=== PATIENT | male | born 1940 | race Two or more races ===

== ENCOUNTER 2019-10-29 17:42 | Inpatient (IN) | payer OTHER ==
[~2019-10-29] VITALS: Ht 172.7 cm; Wt 78.0 kg
[2019-10-29] MEDS ORDERED: NOREPINEPHRINE 4MG/250ML PMX 250 ML IV ONE (18:00)
[2019-10-29] MEDS ORDERED: NOREPINEPHRINE 4MG/250ML PMX 250 ML IV STA (18:13)
[2019-10-29] MEDS ORDERED: SODIUM CHLORIDE 0.9% 250 ML IV ONE (18:13)
[2019-10-29] MEDS ORDERED: PROPOFOL 10MG/ML 100ML 100 ML IV ONE (18:15)
[2019-10-29] MEDS ORDERED: PIPERACILLIN/TAZ 3.375G PREMIX 50 ML IV ONE (18:15)
[2019-10-29] MEDS ORDERED: ACETAMINOPHEN 650MG SUPP PR ONE (18:30)
[2019-10-29 19:06] LABS: BASOPHILS % 0.4 % (0.0-2.0); EOSINOPHILS % 0.1 % (0.0-5.0); HEMATOCRIT. 33.9 % (42.0-52.0); HEMOGLOBIN. 10.7 g/dL (14.0-18.0); LYMPHOCYTES % 27.7 % (20.0-50.0); MEAN CORPUSCULAR HEMOGLOBIN 28.2 pg (28.0-32.0); MEAN CORPUSCULAR VOLUME 88.9 fL (80.0-94.0); MEAN PLATELET VOLUME 8.9 fl (7.4-10.4); MONOCYTES % 3.7 % (2.0-8.0); NEUTROPHILS % 68.1 % (40.0-76.0); PLATELET 343 x1000/uL (130-400); RED BLOOD CELL COUNT 3.81 mill/uL (4.7-6.1); RED CELL DISTRIBUTION WIDTH 18.6 % (11.6-14.6)
[2019-10-29 19:10] LABS: CHLORIDE 107 mEq/L (98-107)
[2019-10-29 19:17] LABS: INR 1.5; PROTHROMBIN TIME 16.5 sec (9.6-11.0)
[2019-10-29] MEDS ORDERED: MIDAZOLAM HCL 50 MG in DEXTROSE 5% WATER 40 ML IV ONE (19:30)
[2019-10-29] MEDS ORDERED: EPINEPHRINE 1 MG in SODIUM CHLORIDE 0.9% 250 ML IV STA (20:39)
[2019-10-29] MEDS ORDERED: EPINEPHRINE 1 MG in SODIUM CHLORIDE 0.9% 249 ML IV STA (20:42)
[2019-10-29] MEDS ORDERED: NOREPINEPHRINE 4MG/250ML PMX 250 ML IV SCH (23:15)
[2019-10-29 23:38] LABS: BG BASE EXCESS -7.5 mmol/L (-2.0-2.0); BG CARBOXYHEMOGLOBIN 0.3 % (0.5-1.5); BG DEOXYHEMOGLOBIN 0.4 % (0.0-5.0); BG FRACTION INSPIRED OXYGEN 100; BG HCO3 ACT 18.8 mmol/L (22.0-26.0); BG METHEMOGLOBIN 0.3 % (0.0-1.5); BG OXYGEN SATURATION 99.6 % (92.0-98.5); BG PH 7.279 (7.350-7.450); BG PO2 346.5 mmHg (75.0-100.0); BG SAMPLE SITE RIGHT RADIAL; BG TIDAL VOLUME(mL) 500 mL; BG TOTAL HEMOGLOBIN 10.8 g/dL (12.0-18.0); BG VENT MODE VENT - A/C; BG VENT RATE 12 set
[2019-10-30] MEDS ORDERED: EPINEPHRINE 1 MG in SODIUM CHLORIDE 0.9% 249 ML IV SCH (00:30)
[2019-10-30] MEDS ORDERED: MIDAZOLAM HCL 50 MG in DEXTROSE 5% WATER 40 ML IV SCH (02:00)
[2019-10-30] MEDS ORDERED: VANCOMYCIN 1 G PREMIX 200 ML IV SCH ×2 (08:45→23:00)
[2019-10-30] MEDS: DEXT 5%/0.9% NACL 1,000 ML IV SCH (10:10)
[2019-10-30] MEDS: PANTOPRAZOLE SODIUM 40 MG/VIAL IV SCH (10:40)
[2019-10-30] MEDS ORDERED: VANCOMYCIN 1250MG in DEXTROSE 5% WATER 250ML IV SCH (11:00)
[2019-10-30] MEDS: PIPERACILLIN/TAZOBACTAM 3.375 G in DEXT 5% WATER 100 ML IV SCH ×2 (12:00→19:00)
[2019-10-30 12:35] LABS: BG BASE EXCESS -11.9 mmol/L (-2.0-2.0); BG CARBOXYHEMOGLOBIN 0.3 % (0.5-1.5); BG DEOXYHEMOGLOBIN 0.5 % (0.0-5.0); BG FRACTION INSPIRED OXYGEN 80; BG METHEMOGLOBIN 0.4 % (0.0-1.5); BG OXYGEN SATURATION 99.5 % (92.0-98.5); BG OXYHEMOGLOBIN 98.8 % (94.0-97.0); BG PCO2 38.2 mmHg (35.0-45.0); BG PH 7.213 (7.350-7.450); BG PO2 335.9 mmHg (75.0-100.0); BG SAMPLE SITE RIGHT RADIAL; BG TIDAL VOLUME(mL) 500 mL; BG TOTAL HEMOGLOBIN 8.8 g/dL (12.0-18.0); BG VENT MODE VENT - A/C; BG VENT RATE 12 set
[2019-10-30] MEDS: ENOXAPARIN 40MG/0.4ML SYR SUBCUT SCH (13:31)
[2019-10-30] MEDS ORDERED: SODIUM BICARBONATE 8.4% 1 MEQ/ML 50ML SYR IV NR ×2 (16:30)
[2019-10-30] MEDS ORDERED: DEXTROSE 50% WATER 50ML SYRINGE IV PRN (16:30)
[2019-10-30] MEDS: BLOOD SUGAR DIAGNOSTIC STRIP TEST SCH ×2 (17:06→21:00)
[2019-10-30] MEDS: INSULIN LISPRO 100 UNITS/ML SUBCUT SCH ×2 (17:35→23:58)
[2019-10-30 17:41] LABS: BG BASE EXCESS -8.3 mmol/L (-2.0-2.0); BG CARBOXYHEMOGLOBIN 0.3 % (0.5-1.5); BG DEOXYHEMOGLOBIN 1.3 % (0.0-5.0); BG FRACTION INSPIRED OXYGEN 50; BG HCO3 ACT 18.5 mmol/L (22.0-26.0); BG METHEMOGLOBIN 0.3 % (0.0-1.5); BG OXYGEN SATURATION 98.7 % (92.0-98.5); BG OXYHEMOGLOBIN 98.1 % (94.0-97.0); BG PCO2 43.6 mmHg (35.0-45.0); BG PH 7.246 (7.350-7.450); BG PO2 140.3 mmHg (75.0-100.0); BG SAMPLE SITE RIGHT RADIAL; BG TIDAL VOLUME(mL) 500 mL; BG TOTAL HEMOGLOBIN 9.3 g/dL (12.0-18.0); BG VENT MODE VENT - A/C; BG VENT RATE 12 set
[2019-10-30] MEDS ORDERED: NOREPINEPHRINE 4MG/250ML PMX 250 ML IV ONE (22:49)
[2019-10-30] MEDS ORDERED: NOREPINEPHRINE 4MG/250ML PMX 250 ML IV PRN (23:00)
[2019-10-31] MEDS: EPINEPHRINE 1 MG in SODIUM CHLORIDE 0.9% 250 ML IV PRN ×8 (00:04→23:00)
[2019-10-31 00:20] LABS: CREATINE KINASE 194 IU/L (39-308)
[2019-10-31 00:21] LABS: CREATINE KINASE MB FRACTION 6.1 ng/mL (0.5-3.6)
[2019-10-31] MEDS: DEXT 5%/0.9% NACL 1,000 ML IV SCH (01:00)
[2019-10-31] MEDS ORDERED: DIGOXIN 500MCG/2ML AMP IV SCH (02:00)
[2019-10-31] MEDS: INSULIN LISPRO 100 UNITS/ML SUBCUT SCH ×2 (03:46→21:49)
[2019-10-31] MEDS: PIPERACILLIN/TAZOBACTAM 3.375 G in DEXT 5% WATER 100 ML IV SCH ×3 (03:47→20:01)
[2019-10-31 04:51] LABS: HEMATOCRIT 29.2 % (42.0-52.0); HEMOGLOBIN 9.5 g/dL (14.0-18.0); MEAN CORPUSCULAR VOLUME 88.9 fL (80.0-94.0); PLATELET 221 x1000/uL (130-400); RED BLOOD CELL COUNT 3.28 mill/uL (4.7-6.1); RED CELL DISTRIBUTION WIDTH 18.8 % (11.6-14.6)
[2019-10-31] MEDS: NOREPINEPHRINE 4 MG in DEXT 5% WATER 246 ML IV PRN ×6 (05:24→21:31)
[2019-10-31] MEDS ORDERED: POTASSIUM CHLORIDE INJ 40 MEQ in DEXT 5% WATER 250 ML IV SCH (06:00)
[2019-10-31 08:30] LABS: BASOPHILS % 0.4 % (0.0-2.0); EOSINOPHILS % 0.7 % (0.0-5.0); HEMATOCRIT. 31.9 % (42.0-52.0); HEMOGLOBIN. 10.1 g/dL (14.0-18.0); LYMPHOCYTES % 12.9 % (20.0-50.0); MEAN CORPUSCULAR HEMOGLOBIN 28.1 pg (28.0-32.0); MEAN CORPUSCULAR VOLUME 89.1 fL (80.0-94.0); MEAN PLATELET VOLUME 8.4 fl (7.4-10.4); MONOCYTES % 1.7 % (2.0-8.0); NEUTROPHILS % 84.3 % (40.0-76.0); PLATELET 165 x1000/uL (130-400); RED BLOOD CELL COUNT 3.58 mill/uL (4.7-6.1); RED CELL DISTRIBUTION WIDTH 18.3 % (11.6-14.6)
[2019-10-31] MEDS: PANTOPRAZOLE SODIUM 40 MG/VIAL IV SCH (09:03)
[2019-10-31 09:12] LABS: BG BASE EXCESS -12.5 mmol/L (-2.0-2.0); BG CARBOXYHEMOGLOBIN 0.3 % (0.5-1.5); BG DEOXYHEMOGLOBIN 1.2 % (0.0-5.0); BG FRACTION INSPIRED OXYGEN 40; BG METHEMOGLOBIN 0.3 % (0.0-1.5); BG OXYGEN SATURATION 98.8 % (92.0-98.5); BG OXYHEMOGLOBIN 98.2 % (94.0-97.0); BG PCO2 28.4 mmHg (35.0-45.0); BG PH 7.278 (7.350-7.450); BG PO2 149.5 mmHg (75.0-100.0); BG SAMPLE SITE RIGHT FEMORAL; BG TIDAL VOLUME(mL) 500 mL; BG TOTAL HEMOGLOBIN 8.7 g/dL (12.0-18.0); BG VENT MODE VENT - A/C; BG VENT RATE 26 set
[2019-10-31] MEDS: ENOXAPARIN 40MG/0.4ML SYR SUBCUT SCH (09:30)
[2019-10-31] MEDS: VANCOMYCIN 750 MG PREMIX 150 ML IV SCH (12:00)
[2019-10-31] MEDS ORDERED: SODIUM BICARBONATE 8.4% 1 MEQ/ML 50ML SYR IV SCH (13:00)
[2019-10-31] MEDS ORDERED: CALCIUM GLUCONATE 1,000 MG in DEXT 5% WATER 90 ML IV NR (13:15)
[2019-10-31] MEDS ORDERED: POTASSIUM CHLORIDE INJ 40 MEQ in DEXT 5% WATER 250 ML IV NR (13:30)
[2019-10-31] MEDS: SODIUM BICARBONATE 100 MEQ in DEXT 5%/0.9% NACL 1,000 ML IV SCH (15:00)
[2019-10-31] MEDS: BLOOD SUGAR DIAGNOSTIC STRIP TEST SCH (21:49)
[2019-11-01] VITALS (73 sets, daily range): BP systolic 89–143; BP diastolic 52–85
[2019-11-01] MEDS: VANCOMYCIN 750 MG PREMIX 150 ML IV SCH (01:13)
[2019-11-01] MEDS ORDERED: NOREPINEPHRINE 4MG/250ML PMX 250 ML IV PRN (02:00)
[2019-11-01] MEDS: SODIUM BICARBONATE 100 MEQ in DEXT 5%/0.9% NACL 1,000 ML IV SCH ×3 (02:04→23:38)
[2019-11-01] MEDS: EPINEPHRINE 1 MG in SODIUM CHLORIDE 0.9% 250 ML IV PRN ×4 (02:05→06:40)
[2019-11-01] MEDS: PIPERACILLIN/TAZOBACTAM 3.375 G in DEXT 5% WATER 100 ML IV SCH ×4 (04:53→23:22)
[2019-11-01] MEDS ORDERED: NOREPINEPHRINE 4MG in DEXT 5% WATER 250ML IV PRN (06:15)
[2019-11-01] MEDS: BLOOD SUGAR DIAGNOSTIC STRIP TEST SCH ×4 (06:48→20:26)
[2019-11-01] MEDS: INSULIN LISPRO 100 UNITS/ML SUBCUT SCH ×4 (06:51→20:30)
[2019-11-01] MEDS ORDERED: EPINEPHRINE 1 MG in SODIUM CHLORIDE 0.9% 249 ML IV PRN (07:42)
[2019-11-01] MEDS ORDERED: EPINEPHRINE 4 MG in SODIUM CHLORIDE 0.9% 246 ML IV PRN (08:00)
[2019-11-01 08:07] LABS: BG BASE EXCESS -7.8 mmol/L (-2.0-2.0); BG CARBOXYHEMOGLOBIN 0.3 % (0.5-1.5); BG FRACTION INSPIRED OXYGEN 40; BG METHEMOGLOBIN 0.3 % (0.0-1.5); BG OXYHEMOGLOBIN 98.4 % (94.0-97.0); BG PCO2 31.7 mmHg (35.0-45.0); BG PH 7.347 (7.350-7.450); BG PO2 164.5 mmHg (75.0-100.0); BG SAMPLE SITE RIGHT RADIAL; BG TIDAL VOLUME(mL) 500 mL; BG TOTAL HEMOGLOBIN 8.8 g/dL (12.0-18.0); BG VENT MODE VENT - A/C; BG VENT RATE 20 set
[2019-11-01] MEDS: PANTOPRAZOLE SODIUM 40 MG/VIAL IV SCH (08:28)
[2019-11-01] MEDS: ENOXAPARIN 40MG/0.4ML SYR SUBCUT SCH (09:00)
[2019-11-01] MEDS: NOREPINEPHRINE 16 MG in DEXT 5% WATER 234 ML IV PRN ×2 (09:00→22:41)
[2019-11-01 09:10] LABS: BASOPHILS % 0.5 % (0.0-2.0); EOSINOPHILS % 0.4 % (0.0-5.0); HEMATOCRIT. 25.8 % (42.0-52.0); HEMOGLOBIN. 8.6 g/dL (14.0-18.0); LYMPHOCYTES % 11.5 % (20.0-50.0); MEAN CORPUSCULAR HEMOGLOBIN 29.1 pg (28.0-32.0); MEAN CORPUSCULAR VOLUME 87.3 fL (80.0-94.0); MEAN PLATELET VOLUME 8.6 fl (7.4-10.4); MONOCYTES % 1.5 % (2.0-8.0); NEUTROPHILS % 86.1 % (40.0-76.0); PLATELET 183 x1000/uL (130-400); RED BLOOD CELL COUNT 2.96 mill/uL (4.7-6.1); RED CELL DISTRIBUTION WIDTH 18.4 % (11.6-14.6)
[2019-11-01 09:15] LABS: CHLORIDE 111 mEq/L (98-107)
[2019-11-01] MEDS ORDERED: POTASSIUM CHLORIDE INJ 40 MEQ in DEXT 5% WATER 250 ML IV SCH (12:00)
[2019-11-01 12:10] LABS: CLARITY URINE CLOUDY (CLEAR); COLOR URINE YELLOW (YELLOW); KETONES URINE NEGATIVE (NEGATIVE); LEUKOCYTE ESTERASE URINE 2+ (NEGATIVE); NITRITE URINE NEGATIVE (NEGATIVE); OCCULT BLOOD URINE TRACE (NEGATIVE); PH URINE 5.5 (4.5-8.0); PROTEIN URINE TRACE (NEGATIVE); SPECIFIC GRAVITY URINE 1.011 (1.005-1.030); UROBILINOGEN URINE 0.2 E.U./dL (0.2-1.0)
[2019-11-01] MEDS: LACTOBACILLUS GG CAPSULE PO SCH (15:00)
[2019-11-01] MEDS: VANCOMYCIN 1 G PREMIX 200 ML IV SCH (18:17)
[2019-11-02] VITALS (120 sets, daily range): BP systolic 83–153; BP diastolic 45–100
[2019-11-02] MEDS: PIPERACILLIN/TAZOBACTAM 3.375 G in DEXT 5% WATER 100 ML IV SCH ×4 (05:45→23:45)
[2019-11-02 05:49] LABS: BASOPHILS % 0.8 % (0.0-2.0); EOSINOPHILS % 1.3 % (0.0-5.0); HEMATOCRIT. 25.9 % (42.0-52.0); HEMOGLOBIN. 8.7 g/dL (14.0-18.0); LYMPHOCYTES % 16.6 % (20.0-50.0); MEAN CORPUSCULAR HEMOGLOBIN 29.5 pg (28.0-32.0); MEAN CORPUSCULAR VOLUME 87.7 fL (80.0-94.0); MEAN PLATELET VOLUME 8.5 fl (7.4-10.4); MONOCYTES % 1.6 % (2.0-8.0); NEUTROPHILS % 79.7 % (40.0-76.0); PLATELET 133 x1000/uL (130-400); RED BLOOD CELL COUNT 2.95 mill/uL (4.7-6.1); RED CELL DISTRIBUTION WIDTH 18.6 % (11.6-14.6)
[2019-11-02] MEDS: BLOOD SUGAR DIAGNOSTIC STRIP TEST SCH ×4 (06:00→20:04)
[2019-11-02] MEDS: INSULIN LISPRO 100 UNITS/ML SUBCUT SCH ×4 (06:00→20:47)
[2019-11-02 06:13] LABS: CHLORIDE 116 mEq/L (98-107)
[2019-11-02 06:19] LABS: PHOSPHORUS 1.4 mg/dL (2.5-4.9)
[2019-11-02] MEDS ORDERED: DILTIAZEM HCL 5MG/ML 5ML VIAL IV NR (07:45)
[2019-11-02] MEDS: PANTOPRAZOLE SODIUM 40 MG/VIAL IV SCH (07:53)
[2019-11-02] MEDS: LACTOBACILLUS GG CAPSULE PO SCH (07:53)
[2019-11-02 08:19] LABS: BG BASE EXCESS -5.3 mmol/L (-2.0-2.0); BG CARBOXYHEMOGLOBIN 0.2 % (0.5-1.5); BG DEOXYHEMOGLOBIN 1.7 % (0.0-5.0); BG FRACTION INSPIRED OXYGEN 40; BG HCO3 ACT 18.4 mmol/L (22.0-26.0); BG METHEMOGLOBIN 0.4 % (0.0-1.5); BG OXYGEN SATURATION 98.3 % (92.0-98.5); BG OXYHEMOGLOBIN 97.7 % (94.0-97.0); BG PCO2 29.4 mmHg (35.0-45.0); BG PH 7.414 (7.350-7.450); BG PO2 147.6 mmHg (75.0-100.0); BG SAMPLE SITE RIGHT RADIAL; BG TIDAL VOLUME(mL) 500 mL; BG TOTAL HEMOGLOBIN 9.4 g/dL (12.0-18.0); BG VENT MODE VENT - A/C; BG VENT RATE 20 set
[2019-11-02] MEDS ORDERED: MAGNESIUM 2 G PREMIX 50 ML IV NR (10:00)
[2019-11-02] MEDS ORDERED: KCL 20MEQ/100ML PREMIX 100 ML IV NR (10:00)
[2019-11-02] MEDS: SODIUM BICARBONATE 100 MEQ in DEXT 5%/0.9% NACL 1,000 ML IV SCH ×2 (11:22→22:17)
[2019-11-02] MEDS: VANCOMYCIN 1 G PREMIX 200 ML IV SCH (12:00)
[2019-11-02] MEDS: ASCORBIC ACID 500 MG TABLET PO SCH (12:46)
[2019-11-02] MEDS: ZINC SULFATE 220 MG ( 50 ) CAPSULE PO SCH (12:46)
[2019-11-02] MEDS: DILTIAZEM HCL 60MG TABLET PO SCH ×2 (14:00→20:49)
[2019-11-02] MEDS ORDERED: FUROSEMIDE 40MG/4ML VIAL IVP NR (18:00)
[2019-11-02] MEDS: ASPIRIN 81MG TABLET PO SCH (18:19)
[2019-11-02] MEDS ORDERED: SODIUM PHOS,M-BASIC-D-BASIC 30 MM in DEXT 5% WATER 500 ML IV SCH (20:00)
[2019-11-03] VITALS (97 sets, daily range): BP systolic 66–118; BP diastolic 24–63
[2019-11-03] MEDS: DILTIAZEM HCL 60MG TABLET PO SCH ×3 (05:11→21:44)
[2019-11-03] MEDS: VANCOMYCIN 1 G PREMIX 200 ML IV SCH ×2 (05:46→23:57)
[2019-11-03] MEDS: PIPERACILLIN/TAZOBACTAM 3.375 G in DEXT 5% WATER 100 ML IV SCH ×4 (05:46→23:23)
[2019-11-03] MEDS: INSULIN LISPRO 100 UNITS/ML SUBCUT SCH ×4 (05:47→20:24)
[2019-11-03] MEDS: BLOOD SUGAR DIAGNOSTIC STRIP TEST SCH ×4 (05:47→20:24)
[2019-11-03 05:53] LABS: CHLORIDE 112 mEq/L (98-107)
[2019-11-03 05:58] LABS: BASOPHILS % 0.3 % (0.0-2.0); EOSINOPHILS % 0.5 % (0.0-5.0); HEMATOCRIT. 25.5 % (42.0-52.0); HEMOGLOBIN. 8.5 g/dL (14.0-18.0); LYMPHOCYTES % 18.6 % (20.0-50.0); MEAN CORPUSCULAR HEMOGLOBIN 28.7 pg (28.0-32.0); MEAN CORPUSCULAR VOLUME 86.5 fL (80.0-94.0); MEAN PLATELET VOLUME 8.6 fl (7.4-10.4); MONOCYTES % 2.5 % (2.0-8.0); NEUTROPHILS % 78.1 % (40.0-76.0); PLATELET 150 x1000/uL (130-400); RED BLOOD CELL COUNT 2.95 mill/uL (4.7-6.1); RED CELL DISTRIBUTION WIDTH 18.8 % (11.6-14.6)
[2019-11-03 05:59] LABS: PHOSPHORUS 3.5 mg/dL (2.5-4.9)
[2019-11-03] MEDS ORDERED: MAGNESIUM 2 G PREMIX 50 ML IV ONE (07:00)
[2019-11-03] MEDS: PANTOPRAZOLE SODIUM 40 MG/VIAL IV SCH (08:18)
[2019-11-03] MEDS: ZINC SULFATE 220 MG ( 50 ) CAPSULE PO SCH (08:18)
[2019-11-03] MEDS: ASPIRIN 81MG TABLET PO SCH (08:18)
[2019-11-03] MEDS: LACTOBACILLUS GG CAPSULE PO SCH (08:18)
[2019-11-03] MEDS: ASCORBIC ACID 500 MG TABLET PO SCH (08:18)
[2019-11-03] MEDS ORDERED: POTASSIUM CHLORIDE INJ 50 MEQ in DEXT 5% WATER 250 ML IV NR (08:30)
[2019-11-03 09:10] LABS: BG BASE EXCESS 0.3 mmol/L (-2.0-2.0); BG CARBOXYHEMOGLOBIN 0.3 % (0.5-1.5); BG DEOXYHEMOGLOBIN 1.3 % (0.0-5.0); BG FRACTION INSPIRED OXYGEN 40; BG HCO3 ACT 23.3 mmol/L (22.0-26.0); BG METHEMOGLOBIN 0.3 % (0.0-1.5); BG OXYGEN SATURATION 98.7 % (92.0-98.5); BG OXYHEMOGLOBIN 98.1 % (94.0-97.0); BG PH 7.493 (7.350-7.450); BG PO2 135.9 mmHg (75.0-100.0); BG SAMPLE SITE RIGHT RADIAL; BG TIDAL VOLUME(mL) 500 mL; BG TOTAL HEMOGLOBIN 9.2 g/dL (12.0-18.0); BG VENT MODE VENT - A/C; BG VENT RATE 20 set
[2019-11-03] MEDS: SODIUM BICARBONATE 100 MEQ in DEXT 5%/0.9% NACL 1,000 ML IV SCH (13:08)
[2019-11-03] MEDS ORDERED: DEXT IV SCH (16:07)
[2019-11-03] MEDS ORDERED: SODIUM BICARBONATE IV SCH (16:07)
[2019-11-03] MEDS ORDERED: NACL IV SCH (16:07)
[2019-11-03] MEDS: FLUCONAZOLE 200 MG/100ML BAG 100 ML IV SCH (19:46)
[2019-11-03] MEDS: SODIUM BICARBONATE 50 MEQ in DEXTROSE 5% WATER 1,000 ML IV SCH (21:47)
[2019-11-04] VITALS (41 sets, daily range): BP systolic 93–126; BP diastolic 39–69
[2019-11-04 05:01] LABS: HEMATOCRIT 30.2 % (42.0-52.0); HEMOGLOBIN 10.5 g/dL (14.0-18.0); MEAN CORPUSCULAR HEMOGLOBIN 31.8 pg (28.0-32.0); MEAN CORPUSCULAR VOLUME 91.6 fL (80.0-94.0); PLATELET 464 x1000/uL (130-400); RED CELL DISTRIBUTION WIDTH 13.3 % (11.6-14.6)
[2019-11-04 05:11] LABS: CHLORIDE 107 mEq/L (98-107)
[2019-11-04] MEDS: DILTIAZEM HCL 60MG TABLET PO SCH ×3 (05:27→21:47)
[2019-11-04] MEDS: BLOOD SUGAR DIAGNOSTIC STRIP TEST SCH ×4 (05:32→21:47)
[2019-11-04] MEDS: PIPERACILLIN/TAZOBACTAM 3.375 G in DEXT 5% WATER 100 ML IV SCH ×3 (05:32→16:15)
[2019-11-04] MEDS: INSULIN LISPRO 100 UNITS/ML SUBCUT SCH ×4 (05:33→21:00)
[2019-11-04] MEDS: NOREPINEPHRINE 16 MG in DEXT 5% WATER 234 ML IV PRN (05:41)
[2019-11-04] MEDS: SODIUM BICARBONATE 50 MEQ in DEXTROSE 5% WATER 1,000 ML IV SCH ×2 (06:49→16:15)
[2019-11-04] MEDS: LACTOBACILLUS GG CAPSULE PO SCH (07:50)
[2019-11-04] MEDS: ASPIRIN 81MG TABLET PO SCH (07:50)
[2019-11-04] MEDS: ASCORBIC ACID 500 MG TABLET PO SCH (07:50)
[2019-11-04] MEDS: PANTOPRAZOLE SODIUM 40 MG/VIAL IV SCH (07:50)
[2019-11-04] MEDS: ZINC SULFATE 220 MG ( 50 ) CAPSULE PO SCH (07:50)
[2019-11-04 08:14] LABS: BG BASE EXCESS 3.3 mmol/L (-2.0-2.0); BG CARBOXYHEMOGLOBIN 0.3 % (0.5-1.5); BG DEOXYHEMOGLOBIN 1.2 % (0.0-5.0); BG FRACTION INSPIRED OXYGEN 40; BG METHEMOGLOBIN 0.3 % (0.0-1.5); BG OXYGEN SATURATION 98.8 % (92.0-98.5); BG OXYHEMOGLOBIN 98.2 % (94.0-97.0); BG PH 7.528 (7.350-7.450); BG PO2 133.2 mmHg (75.0-100.0); BG SAMPLE SITE RIGHT RADIAL; BG TIDAL VOLUME(mL) 500 mL; BG TOTAL HEMOGLOBIN 8.2 g/dL (12.0-18.0); BG VENT MODE VENT - A/C; BG VENT RATE 20 set
[2019-11-04] MEDS: VANCOMYCIN 750 MG PREMIX 150 ML IV SCH (16:15)
[2019-11-04] MEDS: DEXTROSE 5% WATER 1,000 ML IV SCH (17:00)
[2019-11-04] MEDS: FLUCONAZOLE 200 MG/100ML BAG 100 ML IV SCH (19:32)
[2019-11-05] VITALS (24 sets, daily range): BP systolic 86–115; BP diastolic 40–66
[2019-11-05] MEDS: DEXTROSE 5% WATER 1,000 ML IV SCH ×3 (04:58→23:12)
[2019-11-05] MEDS: VANCOMYCIN 750 MG PREMIX 150 ML IV SCH ×2 (04:58→17:40)
[2019-11-05 05:40] LABS: HEMATOCRIT 22.5 % (42.0-52.0); HEMOGLOBIN 7.4 g/dL (14.0-18.0); MEAN CORPUSCULAR HEMOGLOBIN 28.8 pg (28.0-32.0); PLATELET 157 x1000/uL (130-400); RED BLOOD CELL COUNT 2.58 mill/uL (4.7-6.1); RED CELL DISTRIBUTION WIDTH 19.2 % (11.6-14.6)
[2019-11-05 05:43] LABS: CHLORIDE 107 mEq/L (98-107)
[2019-11-05] MEDS: BLOOD SUGAR DIAGNOSTIC STRIP TEST SCH ×4 (05:56→21:11)
[2019-11-05] MEDS: INSULIN LISPRO 100 UNITS/ML SUBCUT SCH ×4 (05:56→21:19)
[2019-11-05] MEDS: DILTIAZEM HCL 60MG TABLET PO SCH ×3 (05:57→21:19)
[2019-11-05] MEDS: PANTOPRAZOLE SODIUM 40 MG/VIAL IV SCH (08:18)
[2019-11-05] MEDS: ASPIRIN 81MG TABLET PO SCH (08:18)
[2019-11-05] MEDS: LACTOBACILLUS GG CAPSULE PO SCH (08:19)
[2019-11-05] MEDS: ZINC SULFATE 220 MG ( 50 ) CAPSULE PO SCH (08:19)
[2019-11-05] MEDS: ENOXAPARIN 40MG/0.4ML SYR SUBCUT SCH (08:19)
[2019-11-05] MEDS: ASCORBIC ACID 500 MG TABLET PO SCH (08:19)
[2019-11-05 09:33] LABS: BG BASE EXCESS 1.8 mmol/L (-2.0-2.0); BG CARBOXYHEMOGLOBIN 0.3 % (0.5-1.5); BG DEOXYHEMOGLOBIN 1.7 % (0.0-5.0); BG FRACTION INSPIRED OXYGEN 40; BG HCO3 ACT 24.7 mmol/L (22.0-26.0); BG METHEMOGLOBIN 0.2 % (0.0-1.5); BG OXYGEN SATURATION 98.3 % (92.0-98.5); BG OXYHEMOGLOBIN 97.8 % (94.0-97.0); BG PCO2 30.9 mmHg (35.0-45.0); BG PO2 124.8 mmHg (75.0-100.0); BG SAMPLE SITE RIGHT RADIAL; BG TIDAL VOLUME(mL) 500 mL; BG TOTAL HEMOGLOBIN 7.2 g/dL (12.0-18.0); BG VENT MODE VENT - A/C; BG VENT RATE 18 set
[2019-11-05 14:06] LABS: HEMATOCRIT 22.2 % (42.0-52.0); HEMOGLOBIN 7.4 g/dL (14.0-18.0)
[2019-11-05] MEDS ORDERED: POTASSIUM CHLORIDE INJ 40 MEQ in DEXT 5% WATER 250 ML IV NR (16:30)
[2019-11-05] MEDS: FLUCONAZOLE 200 MG/100ML BAG 100 ML IV SCH (19:55)
[2019-11-06] VITALS (63 sets, daily range): BP systolic 90–128; BP diastolic 42–115
[2019-11-06 05:58] LABS: HEMATOCRIT 21.9 % (42.0-52.0); HEMOGLOBIN 7.2 g/dL (14.0-18.0); MEAN CORPUSCULAR HEMOGLOBIN 28.6 pg (28.0-32.0); MEAN CORPUSCULAR VOLUME 87.2 fL (80.0-94.0); PLATELET 176 x1000/uL (130-400); RED BLOOD CELL COUNT 2.51 mill/uL (4.7-6.1); RED CELL DISTRIBUTION WIDTH 19.3 % (11.6-14.6)
[2019-11-06 06:01] LABS: CHLORIDE 104 mEq/L (98-107)
[2019-11-06] MEDS: DILTIAZEM HCL 60MG TABLET PO SCH ×3 (06:09→21:22)
[2019-11-06] MEDS: BLOOD SUGAR DIAGNOSTIC STRIP TEST SCH ×4 (06:09→21:08)
[2019-11-06] MEDS: INSULIN LISPRO 100 UNITS/ML SUBCUT SCH ×4 (06:10→21:23)
[2019-11-06] MEDS: VANCOMYCIN 750 MG PREMIX 150 ML IV SCH (06:11)
[2019-11-06] MEDS: ASCORBIC ACID 500 MG TABLET PO SCH (08:01)
[2019-11-06] MEDS: ZINC SULFATE 220 MG ( 50 ) CAPSULE PO SCH (08:01)
[2019-11-06] MEDS: LACTOBACILLUS GG CAPSULE PO SCH (08:01)
[2019-11-06] MEDS: PANTOPRAZOLE SODIUM 40 MG/VIAL IV SCH (08:01)
[2019-11-06] MEDS: ASPIRIN 81MG TABLET PO SCH (08:01)
[2019-11-06] MEDS: DEXTROSE 5% WATER 1,000 ML IV SCH ×2 (10:43→22:06)
[2019-11-06] MEDS ORDERED: FUROSEMIDE 40MG/4ML VIAL IVP SCH (13:15)
[2019-11-06] MEDS: ACETAMINOPHEN WITH CODEINE 300/30MG TABLET NG PRN ×2 (16:52→21:22)
[2019-11-06] MEDS: FLUCONAZOLE 200 MG/100ML BAG 100 ML IV SCH (19:43)
[2019-11-07] VITALS (67 sets, daily range): BP systolic 90–124; BP diastolic 39–80
[2019-11-07] MEDS: DILTIAZEM HCL 60MG TABLET PO SCH ×3 (05:28→21:31)
[2019-11-07] MEDS: ACETAMINOPHEN WITH CODEINE 300/30MG TABLET NG PRN (05:28)
[2019-11-07 05:43] LABS: HEMATOCRIT. 22.6 % (42.0-52.0); HEMOGLOBIN. 7.4 g/dL (14.0-18.0); MEAN CORPUSCULAR HEMOGLOBIN 28.8 pg (28.0-32.0); MEAN CORPUSCULAR VOLUME 87.9 fL (80.0-94.0); MEAN PLATELET VOLUME 8.7 fl (7.4-10.4); PLATELET 224 x1000/uL (130-400); RED BLOOD CELL COUNT 2.57 mill/uL (4.7-6.1); RED CELL DISTRIBUTION WIDTH 20.7 % (11.6-14.6)
[2019-11-07] MEDS: INSULIN LISPRO 100 UNITS/ML SUBCUT SCH ×4 (05:45→20:56)
[2019-11-07] MEDS: BLOOD SUGAR DIAGNOSTIC STRIP TEST SCH ×4 (05:45→20:56)
[2019-11-07 05:53] LABS: CHLORIDE 102 mEq/L (98-107)
[2019-11-07 07:57] LABS: BG BASE EXCESS 1.2 mmol/L (-2.0-2.0); BG CARBOXYHEMOGLOBIN 0.3 % (0.5-1.5); BG DEOXYHEMOGLOBIN 3.2 % (0.0-5.0); BG HCO3 ACT 24.5 mmol/L (22.0-26.0); BG METHEMOGLOBIN 0.4 % (0.0-1.5); BG OXYGEN SATURATION 96.8 % (92.0-98.5); BG OXYHEMOGLOBIN 96.1 % (94.0-97.0); BG PH 7.489 (7.350-7.450); BG PO2 90.3 mmHg (75.0-100.0); BG SAMPLE SITE RIGHT RADIAL; BG TIDAL VOLUME(mL) 450 mL; BG TOTAL HEMOGLOBIN 7.3 g/dL (12.0-18.0); BG VENT MODE VENT - A/C; BG VENT RATE 18 set
[2019-11-07] MEDS: DEXTROSE 5% WATER 1,000 ML IV SCH (08:07)
[2019-11-07] MEDS: ZINC SULFATE 220 MG ( 50 ) CAPSULE PO SCH (08:44)
[2019-11-07] MEDS: PANTOPRAZOLE SODIUM 40 MG/VIAL IV SCH (08:44)
[2019-11-07] MEDS: ASPIRIN 81MG TABLET PO SCH (08:44)
[2019-11-07] MEDS: LACTOBACILLUS GG CAPSULE PO SCH (08:44)
[2019-11-07] MEDS: ASCORBIC ACID 500 MG TABLET PO SCH (08:44)
[2019-11-07 09:15] LABS: PLATELET ESTIMATE NORMAL
[2019-11-07] MEDS: FLUCONAZOLE 200 MG/100ML BAG 100 ML IV SCH (18:14)
[2019-11-07] MEDS: METHYLPREDNISOLONE SOD SUCC 40 MG/ML VIAL IV SCH (23:38)
[2019-11-07] MEDS ORDERED: ENOXAPARIN 40MG/0.4ML SYR SUBCUT SCH (23:45)
[2019-11-08] VITALS (49 sets, daily range): BP systolic 101–130; BP diastolic 44–84
[2019-11-08] MEDS: DILTIAZEM HCL 60MG TABLET PO SCH ×3 (05:13→21:03)
[2019-11-08] MEDS: INSULIN LISPRO 100 UNITS/ML SUBCUT SCH ×4 (05:21→23:19)
[2019-11-08] MEDS: BLOOD SUGAR DIAGNOSTIC STRIP TEST SCH ×4 (05:21→23:19)
[2019-11-08 05:50] LABS: CHLORIDE 107 mEq/L (98-107)
[2019-11-08 05:56] LABS: EOSINOPHILS % 0.1 % (0.0-5.0); HEMOGLOBIN. 8.3 g/dL (14.0-18.0); LYMPHOCYTES % 14.5 % (20.0-50.0); MEAN CORPUSCULAR HEMOGLOBIN 29.6 pg (28.0-32.0); MEAN CORPUSCULAR VOLUME 88.6 fL (80.0-94.0); MEAN PLATELET VOLUME 8.6 fl (7.4-10.4); MONOCYTES % 1.5 % (2.0-8.0); NEUTROPHILS % 83.9 % (40.0-76.0); PLATELET 246 x1000/uL (130-400); RED BLOOD CELL COUNT 2.82 mill/uL (4.7-6.1); RED CELL DISTRIBUTION WIDTH 20.9 % (11.6-14.6)
[2019-11-08] MEDS: METHYLPREDNISOLONE SOD SUCC 40 MG/ML VIAL IV SCH ×3 (06:45→23:19)
[2019-11-08] MEDS: ASPIRIN 81MG TABLET PO SCH (08:14)
[2019-11-08] MEDS: ASCORBIC ACID 500 MG TABLET PO SCH (08:14)
[2019-11-08] MEDS: ZINC SULFATE 220 MG ( 50 ) CAPSULE PO SCH (08:14)
[2019-11-08] MEDS: PANTOPRAZOLE SODIUM 40 MG/VIAL IV SCH (08:14)
[2019-11-08] MEDS: LACTOBACILLUS GG CAPSULE PO SCH (08:15)
[2019-11-08] MEDS: FLUCONAZOLE 200 MG/100ML BAG 100 ML IV SCH (18:08)
[2019-11-08] MEDS: ENOXAPARIN 40MG/0.4ML SYR SUBCUT SCH (23:19)
[2019-11-09] VITALS (47 sets, daily range): BP systolic 93–161; BP diastolic 42–72
[2019-11-09] MEDS: BLOOD SUGAR DIAGNOSTIC STRIP TEST SCH ×4 (05:27→23:28)
[2019-11-09] MEDS: DILTIAZEM HCL 60MG TABLET PO SCH ×3 (05:27→21:12)
[2019-11-09] MEDS: INSULIN LISPRO 100 UNITS/ML SUBCUT SCH ×4 (05:27→23:28)
[2019-11-09] MEDS: METHYLPREDNISOLONE SOD SUCC 40 MG/ML VIAL IV SCH ×3 (06:29→23:27)
[2019-11-09] MEDS: ZINC SULFATE 220 MG ( 50 ) CAPSULE PO SCH (08:07)
[2019-11-09] MEDS: LACTOBACILLUS GG CAPSULE PO SCH (08:07)
[2019-11-09] MEDS: ASCORBIC ACID 500 MG TABLET PO SCH (08:07)
[2019-11-09] MEDS: PANTOPRAZOLE SODIUM 40 MG/VIAL IV SCH (08:07)
[2019-11-09] MEDS: ASPIRIN 81MG TABLET PO SCH (08:07)
[2019-11-09] MEDS: ENOXAPARIN 40MG/0.4ML SYR SUBCUT SCH (23:27)
[2019-11-10] VITALS (47 sets, daily range): BP systolic 93–134; BP diastolic 42–70
[2019-11-10] MEDS: DILTIAZEM HCL 60MG TABLET PO SCH ×3 (05:12→21:49)
[2019-11-10] MEDS: BLOOD SUGAR DIAGNOSTIC STRIP TEST SCH ×3 (05:13→17:20)
[2019-11-10] MEDS: INSULIN LISPRO 100 UNITS/ML SUBCUT SCH ×3 (05:22→17:30)
[2019-11-10 05:51] LABS: HEMATOCRIT. 23.8 % (42.0-52.0); HEMOGLOBIN. 7.7 g/dL (14.0-18.0); MEAN CORPUSCULAR HEMOGLOBIN 28.7 pg (28.0-32.0); MEAN CORPUSCULAR VOLUME 89.2 fL (80.0-94.0); MEAN PLATELET VOLUME 8.4 fl (7.4-10.4); MONOCYTES % 2.4 % (2.0-8.0); NEUTROPHILS % 81.6 % (40.0-76.0); PLATELET 253 x1000/uL (130-400); RED BLOOD CELL COUNT 2.67 mill/uL (4.7-6.1); RED CELL DISTRIBUTION WIDTH 20.5 % (11.6-14.6)
[2019-11-10 05:56] LABS: CHLORIDE 108 mEq/L (98-107)
[2019-11-10] MEDS: ZINC SULFATE 220 MG ( 50 ) CAPSULE PO SCH (08:00)
[2019-11-10] MEDS: ASPIRIN 81MG TABLET PO SCH (08:00)
[2019-11-10] MEDS: METHYLPREDNISOLONE SOD SUCC 40 MG/ML VIAL IV SCH ×3 (08:00→23:31)
[2019-11-10] MEDS: ASCORBIC ACID 500 MG TABLET PO SCH (08:00)
[2019-11-10] MEDS: PANTOPRAZOLE SODIUM 40 MG/VIAL IV SCH (08:00)
[2019-11-10] MEDS: LACTOBACILLUS GG CAPSULE PO SCH (08:00)
[2019-11-10] MEDS: ENOXAPARIN 40MG/0.4ML SYR SUBCUT SCH (23:32)
[2019-11-11] VITALS (47 sets, daily range): BP systolic 91–151; BP diastolic 41–85
[2019-11-11] MEDS: BLOOD SUGAR DIAGNOSTIC STRIP TEST SCH ×4 (00:06→17:49)
[2019-11-11] MEDS: INSULIN LISPRO 100 UNITS/ML SUBCUT SCH ×4 (06:00→17:48)
[2019-11-11] MEDS: DILTIAZEM HCL 60MG TABLET PO SCH ×2 (06:00→14:15)
[2019-11-11] MEDS: METHYLPREDNISOLONE SOD SUCC 40 MG/ML VIAL IV SCH ×2 (08:00→14:15)
[2019-11-11] MEDS: ZINC SULFATE 220 MG ( 50 ) CAPSULE PO SCH (08:00)
[2019-11-11] MEDS: ASPIRIN 81MG TABLET PO SCH (08:00)
[2019-11-11] MEDS: LACTOBACILLUS GG CAPSULE PO SCH (08:00)
[2019-11-11] MEDS: PANTOPRAZOLE SODIUM 40 MG/VIAL IV SCH (08:00)
[2019-11-11] MEDS: ASCORBIC ACID 500 MG TABLET PO SCH (08:00)
[2019-11-11] MEDS: ACETAMINOPHEN WITH CODEINE 300/30MG TABLET NG PRN (10:09)
[2019-11-11] MEDS: LORAZEPAM 2MG/ML CPJ IV PRN (14:03)
[2019-11-11] MEDS: MORPHINE SULFATE 2 MG/ML CPJ (NOT FOR IM USE) IV PRN (16:41)
[2019-11-11] MEDS: DILTIAZEM HCL 30MG TABLET PO SCH (21:51)
[2019-11-12] VITALS (38 sets, daily range): BP systolic 54–142; BP diastolic 36–70
[2019-11-12] MEDS: LORAZEPAM 2MG/ML CPJ IV PRN (00:13)
[2019-11-12] MEDS: METHYLPREDNISOLONE SOD SUCC 40 MG/ML VIAL IV SCH ×4 (00:13→23:36)
[2019-11-12] MEDS: BLOOD SUGAR DIAGNOSTIC STRIP TEST SCH ×4 (00:13→17:19)
[2019-11-12] MEDS ORDERED: PROPOFOL 10MG/ML 100ML 100 ML IV PRN (01:00)
[2019-11-12] MEDS ORDERED: LIDOCAINE HCL/EPINEPHRINE 1%-EPI 1:100,000 20 ML VIAL INFIL SCH (02:00)
[2019-11-12] MEDS: INSULIN LISPRO 100 UNITS/ML SUBCUT SCH ×4 (06:00→18:00)
[2019-11-12] MEDS: DILTIAZEM HCL 30MG TABLET PO SCH ×3 (06:00→21:16)
[2019-11-12] MEDS: ASPIRIN 81MG TABLET PO SCH (08:44)
[2019-11-12] MEDS: ZINC SULFATE 220 MG ( 50 ) CAPSULE PO SCH (08:44)
[2019-11-12] MEDS: LACTOBACILLUS GG CAPSULE PO SCH (08:44)
[2019-11-12] MEDS: ASCORBIC ACID 500 MG TABLET PO SCH (08:44)
[2019-11-12] MEDS: PANTOPRAZOLE SODIUM 40 MG/VIAL IV SCH (09:12)
[2019-11-12] MEDS: MORPHINE SULFATE 2 MG/ML CPJ (NOT FOR IM USE) IV PRN (12:44)
[2019-11-12] MEDS: ENOXAPARIN 40MG/0.4ML SYR SUBCUT SCH (21:15)
[2019-11-13] VITALS (83 sets, daily range): BP systolic 111–145; BP diastolic 45–120
[2019-11-13] MEDS: BLOOD SUGAR DIAGNOSTIC STRIP TEST SCH ×4 (00:18→17:26)
[2019-11-13] MEDS: DILTIAZEM HCL 30MG TABLET PO SCH ×3 (06:00→22:00)
[2019-11-13] MEDS: INSULIN LISPRO 100 UNITS/ML SUBCUT SCH ×4 (06:00→17:26)
[2019-11-13] MEDS: METHYLPREDNISOLONE SOD SUCC 40 MG/ML VIAL IV SCH ×3 (08:23→23:26)
[2019-11-13] MEDS: PANTOPRAZOLE SODIUM 40 MG/VIAL IV SCH (08:23)
[2019-11-13] MEDS: ASPIRIN 81MG TABLET PO SCH (08:23)
[2019-11-13] MEDS: LACTOBACILLUS GG CAPSULE PO SCH (08:24)
[2019-11-13] MEDS: ZINC SULFATE 220 MG ( 50 ) CAPSULE PO SCH (08:24)
[2019-11-13] MEDS: ASCORBIC ACID 500 MG TABLET PO SCH (08:24)
[2019-11-13] MEDS: ENOXAPARIN 40MG/0.4ML SYR SUBCUT SCH (20:57)
[2019-11-14] VITALS (81 sets, daily range): BP systolic 109–147; BP diastolic 43–90
[2019-11-14] MEDS: DILTIAZEM HCL 30MG TABLET PO SCH ×3 (06:00→22:00)
[2019-11-14] MEDS: INSULIN LISPRO 100 UNITS/ML SUBCUT SCH ×4 (06:32→17:45)
[2019-11-14] MEDS: BLOOD SUGAR DIAGNOSTIC STRIP TEST SCH ×4 (06:33→17:46)
[2019-11-14] MEDS: ASCORBIC ACID 500 MG TABLET PO SCH (08:14)
[2019-11-14] MEDS: LACTOBACILLUS GG CAPSULE PO SCH (08:14)
[2019-11-14] MEDS: METHYLPREDNISOLONE SOD SUCC 40 MG/ML VIAL IV SCH ×3 (08:14→23:21)
[2019-11-14] MEDS: ZINC SULFATE 220 MG ( 50 ) CAPSULE PO SCH (08:14)
[2019-11-14] MEDS: ASPIRIN 81MG TABLET PO SCH (08:14)
[2019-11-14] MEDS: PANTOPRAZOLE SODIUM 40 MG/VIAL IV SCH (08:14)
[2019-11-14] MEDS: ENOXAPARIN 40MG/0.4ML SYR SUBCUT SCH (21:14)
[2019-11-15] VITALS (86 sets, daily range): BP systolic 120–150; BP diastolic 49–72
[2019-11-15] MEDS: BLOOD SUGAR DIAGNOSTIC STRIP TEST SCH ×4 (00:39→17:51)
[2019-11-15 05:49] LABS: BASOPHILS % 0.1 % (0.0-2.0); HEMATOCRIT. 24.5 % (42.0-52.0); HEMOGLOBIN. 8.1 g/dL (14.0-18.0); LYMPHOCYTES % 10.2 % (20.0-50.0); MEAN CORPUSCULAR HEMOGLOBIN 30.3 pg (28.0-32.0); MEAN CORPUSCULAR VOLUME 91.2 fL (80.0-94.0); MEAN PLATELET VOLUME 8.5 fl (7.4-10.4); MONOCYTES % 2.5 % (2.0-8.0); NEUTROPHILS % 87.2 % (40.0-76.0); PLATELET 143 x1000/uL (130-400); RED BLOOD CELL COUNT 2.68 mill/uL (4.7-6.1); RED CELL DISTRIBUTION WIDTH 21.7 % (11.6-14.6)
[2019-11-15] MEDS: DILTIAZEM HCL 30MG TABLET PO SCH ×3 (06:00→21:45)
[2019-11-15] MEDS: INSULIN LISPRO 100 UNITS/ML SUBCUT SCH ×4 (06:00→18:00)
[2019-11-15 06:02] LABS: CHLORIDE 111 mEq/L (98-107)
[2019-11-15 06:09] LABS: PHOSPHORUS 2.1 mg/dL (2.5-4.9)
[2019-11-15] MEDS: METHYLPREDNISOLONE SOD SUCC 40 MG/ML VIAL IV SCH ×2 (08:28→17:32)
[2019-11-15] MEDS: ZINC SULFATE 220 MG ( 50 ) CAPSULE PO SCH (08:46)
[2019-11-15] MEDS: PANTOPRAZOLE SODIUM 40 MG/VIAL IV SCH ×2 (08:46→08:49)
[2019-11-15] MEDS: LACTOBACILLUS GG CAPSULE PO SCH (08:46)
[2019-11-15] MEDS: ASCORBIC ACID 500 MG TABLET PO SCH (08:46)
[2019-11-15] MEDS: ASPIRIN 81MG TABLET PO SCH (09:00)
[2019-11-15] MEDS: DEXT 5%/0.45% NACL 1000ML 1,000 ML IV SCH (11:22)
[2019-11-15] MEDS ORDERED: CEFAZOLIN 1000MG PREMIX 50 ML IV NR (11:30)
[2019-11-15 13:26] LABS: INR 1.1
[2019-11-16] VITALS (12 sets, daily range): BP systolic 116–163; BP diastolic 54–76
[2019-11-16] MEDS: METHYLPREDNISOLONE SOD SUCC 40 MG/ML VIAL IV SCH ×2 (00:08→06:21)
[2019-11-16] MEDS: BLOOD SUGAR DIAGNOSTIC STRIP TEST SCH ×5 (00:09→23:55)
[2019-11-16] MEDS: INSULIN LISPRO 100 UNITS/ML SUBCUT SCH ×5 (00:22→23:55)
[2019-11-16] MEDS: DILTIAZEM HCL 30MG TABLET PO SCH (05:26)
[2019-11-16] MEDS: DEXT 5%/0.45% NACL 1000ML 1,000 ML IV SCH (06:21)
[2019-11-16] MEDS: LACTOBACILLUS GG CAPSULE PO SCH (09:00)
[2019-11-16] MEDS: PANTOPRAZOLE SODIUM 40 MG/VIAL IV SCH (09:16)
[2019-11-16] MEDS ORDERED: POTASSIUM-SODIUM PHOSPHATE POWDER PACKET PO NR (11:00)
[2019-11-16 11:22] LABS: HEMATOCRIT. 27.2 % (42.0-52.0); HEMOGLOBIN. 8.9 g/dL (14.0-18.0); MEAN CORPUSCULAR HEMOGLOBIN 29.8 pg (28.0-32.0); MEAN PLATELET VOLUME 8.8 fl (7.4-10.4); PLATELET 127 x1000/uL (130-400); RED BLOOD CELL COUNT 2.99 mill/uL (4.7-6.1); RED CELL DISTRIBUTION WIDTH 20.8 % (11.6-14.6)
[2019-11-16 11:36] LABS: CHLORIDE 111 mEq/L (98-107)
[2019-11-16 11:37] LABS: INR 1.4; PARTIAL THROMBOPLASTIN TIME 30.9 sec (23.4-31.0); PROTHROMBIN TIME 14.9 sec (9.6-11.0)
[2019-11-16] MEDS: AMLODIPINE 5MG TABLET PO SCH ×2 (12:00→21:00)
[2019-11-16 16:10] LABS: PLATELET ESTIMATE DECREASED
[2019-11-16] MEDS ORDERED: MIDAZOLAM HCL 5 MG/5 ML VIAL IV ONE ×2 (16:22→19:45)
[2019-11-16] MEDS ORDERED: FENTANYL CITRATE/PF 50MCG/ML 2ML VIAL IV ONE ×2 (16:23→19:45)
[2019-11-16] MEDS ORDERED: MIDAZOLAM HCL 5 MG/5 ML VIAL ONE ×2 (17:50→18:20)
[2019-11-16] MEDS ORDERED: FENTANYL CITRATE/PF 50MCG/ML 2ML VIAL ONE ×2 (17:50→18:20)
[2019-11-16 20:23] LABS: HEMATOCRIT 27.4 % (42.0-52.0)
[2019-11-17] VITALS (12 sets, daily range): BP systolic 104–126; BP diastolic 55–66
[2019-11-17] MEDS: INSULIN LISPRO 100 UNITS/ML SUBCUT SCH ×3 (05:41→18:38)
[2019-11-17] MEDS: DEXT 5%/0.45% NACL 1000ML 1,000 ML IV SCH ×2 (05:41→20:42)
[2019-11-17] MEDS: BLOOD SUGAR DIAGNOSTIC STRIP TEST SCH ×3 (05:43→18:35)
[2019-11-17 07:02] LABS: BASOPHILS % 0.2 % (0.0-2.0); EOSINOPHILS % 0.2 % (0.0-5.0); HEMATOCRIT. 26.6 % (42.0-52.0); HEMOGLOBIN. 8.7 g/dL (14.0-18.0); LYMPHOCYTES % 13.2 % (20.0-50.0); MEAN CORPUSCULAR HEMOGLOBIN 30.1 pg (28.0-32.0); MEAN CORPUSCULAR VOLUME 92.2 fL (80.0-94.0); MEAN PLATELET VOLUME 8.8 fl (7.4-10.4); MONOCYTES % 2.2 % (2.0-8.0); NEUTROPHILS % 84.2 % (40.0-76.0); PLATELET 131 x1000/uL (130-400); RED BLOOD CELL COUNT 2.89 mill/uL (4.7-6.1)
[2019-11-17 07:09] LABS: CHLORIDE 110 mEq/L (98-107)
[2019-11-17] MEDS ORDERED: POTASSIUM CHLORIDE 20MEQ TABLET SR PO NR (08:00)
[2019-11-17] MEDS: AMLODIPINE 5MG TABLET PO SCH ×2 (08:28→20:42)
[2019-11-17] MEDS: LACTOBACILLUS GG CAPSULE PO SCH (08:29)
[2019-11-17] MEDS: PREDNISONE 20MG TABLET PO SCH (08:29)
[2019-11-17] MEDS: PANTOPRAZOLE SODIUM 40 MG/VIAL IV SCH (08:30)
[2019-11-18] VITALS (12 sets, daily range): BP systolic 100–113; BP diastolic 49–61
[2019-11-18] MEDS: BLOOD SUGAR DIAGNOSTIC STRIP TEST SCH ×5 (00:31→23:28)
[2019-11-18] MEDS: INSULIN LISPRO 100 UNITS/ML SUBCUT SCH ×5 (00:32→23:28)
[2019-11-18] MEDS: PANTOPRAZOLE SODIUM 40 MG/VIAL IV SCH (09:00)
[2019-11-18] MEDS: LACTOBACILLUS GG CAPSULE PO SCH (09:00)
[2019-11-18] MEDS: PREDNISONE 20MG TABLET PO SCH (09:00)
[2019-11-18] MEDS: AMLODIPINE 5MG TABLET PO SCH ×2 (09:02→21:00)
[2019-11-18] MEDS: ASPIRIN 81MG TABLET PO SCH (09:13)
[2019-11-18] MEDS: DOCUSATE SODIUM SUGAR FREE 100MG/10ML UDC GT SCH (10:53)
[2019-11-18] MEDS ORDERED: METOPROLOL TARTRATE 5MG/5ML VIAL IV PRN (11:45)
[2019-11-18 11:51] LABS: HEMATOCRIT. 27.5 % (42.0-52.0); HEMOGLOBIN. 9.1 g/dL (14.0-18.0); MEAN CORPUSCULAR HEMOGLOBIN 30.6 pg (28.0-32.0); MEAN CORPUSCULAR VOLUME 92.2 fL (80.0-94.0); MEAN PLATELET VOLUME 8.6 fl (7.4-10.4); PLATELET 107 x1000/uL (130-400); RED BLOOD CELL COUNT 2.98 mill/uL (4.7-6.1); RED CELL DISTRIBUTION WIDTH 20.9 % (11.6-14.6)
[2019-11-18 11:54] LABS: CHLORIDE 109 mEq/L (98-107)
[2019-11-18] MEDS: FUROSEMIDE 20MG/2ML VIAL IVP SCH (12:20)
[2019-11-18 12:21] LABS: PLATELET ESTIMATE DECREASED
[2019-11-18] MEDS: RIVAROXABAN 20 MG TABLET PEG SCH (17:16)
[2019-11-19] VITALS (14 sets, daily range): BP systolic 92–116; BP diastolic 46–57
[2019-11-19] MEDS: BLOOD SUGAR DIAGNOSTIC STRIP TEST SCH ×4 (05:04→23:36)
[2019-11-19] MEDS: INSULIN LISPRO 100 UNITS/ML SUBCUT SCH ×4 (05:04→23:36)
[2019-11-19] MEDS: AMLODIPINE 5MG TABLET PO SCH ×2 (08:39→20:54)
[2019-11-19] MEDS: DOCUSATE SODIUM SUGAR FREE 100MG/10ML UDC GT SCH (08:42)
[2019-11-19] MEDS: FUROSEMIDE 20MG/2ML VIAL IVP SCH (08:49)
[2019-11-19] MEDS: PREDNISONE 20MG TABLET PO SCH (08:50)
[2019-11-19] MEDS: ASPIRIN 81MG TABLET PO SCH (08:50)
[2019-11-19] MEDS: PANTOPRAZOLE SODIUM 40 MG/VIAL IV SCH (08:52)
[2019-11-19] MEDS: LACTOBACILLUS GG CAPSULE PO SCH (08:52)
[2019-11-19 11:39] LABS: HEMATOCRIT 24.8 % (42.0-52.0); HEMOGLOBIN 8.2 g/dL (14.0-18.0); MEAN CORPUSCULAR HEMOGLOBIN 30.4 pg (28.0-32.0); MEAN CORPUSCULAR VOLUME 91.6 fL (80.0-94.0); PLATELET 103 x1000/uL (130-400); RED BLOOD CELL COUNT 2.71 mill/uL (4.7-6.1)
[2019-11-19 12:08] LABS: CHLORIDE 105 mEq/L (98-107)
[2019-11-19] MEDS: RIVAROXABAN 20 MG TABLET PEG SCH (18:15)
[2019-11-20] VITALS (10 sets, daily range): BP systolic 95–123; BP diastolic 44–71
[2019-11-20] MEDS: INSULIN LISPRO 100 UNITS/ML SUBCUT SCH ×2 (05:36→12:41)
[2019-11-20] MEDS: BLOOD SUGAR DIAGNOSTIC STRIP TEST SCH ×2 (05:36→12:20)
[2019-11-20] MEDS: PANTOPRAZOLE SODIUM 40 MG/VIAL IV SCH (08:49)
[2019-11-20] MEDS: LACTOBACILLUS GG CAPSULE PO SCH (08:49)
[2019-11-20] MEDS: PREDNISONE 20MG TABLET PO SCH (08:49)
[2019-11-20] MEDS: FUROSEMIDE 20MG/2ML VIAL IVP SCH (08:49)
[2019-11-20] MEDS: ASPIRIN 81MG TABLET PO SCH (08:51)
[2019-11-20] MEDS: AMLODIPINE 5MG TABLET PO SCH (08:51)
[2019-11-20] MEDS ORDERED: MAGNESIUM 1 G PREMIX 100 ML IV NR (12:00)
== END 2019-11-20 18:02 | DRG 4 ==
LOC: ER 17:42 → MICUSO 19:28 → 5EST 11-15 22:30
PROVIDERS: ADMIT Internal Medicine; ATTEND Internal Medicine
PROC: 0BH17EZ Insertion of Endotracheal Airway into Trachea, Via Natural or Artificial Opening (ICD-10-PCS; principal; 2019-10-29)
PROC: 5A1955Z Respiratory Ventilation, Greater than 96 Consecutive Hours (ICD-10-PCS; 2019-10-29)
PROC: 06HY33Z Insertion of Infusion Device into Lower Vein, Percutaneous Approach (ICD-10-PCS; 2019-10-29)
PROC: 0B110F4 Bypass Trachea to Cutaneous with Tracheostomy Device, Open Approach (ICD-10-PCS; 2019-11-12)
PROC: 0GBJ0ZZ Excision of Thyroid Gland Isthmus, Open Approach (ICD-10-PCS; 2019-11-12)
PROC: 0DH63UZ Insertion of Feeding Device into Stomach, Percutaneous Approach (ICD-10-PCS; 2019-11-16)
DX: A41.89 Other specified sepsis (principal); U07.1 COVID-19; R65.21 Severe sepsis with septic shock; G93.41 Metabolic encephalopathy; E46 Unspecified protein-calorie malnutrition; J12.89 Other viral pneumonia; D69.6 Thrombocytopenia, unspecified; I48.0 Paroxysmal atrial fibrillation; J96.01 Acute respiratory failure with hypoxia; Z99.11 Dependence on respirator [ventilator] status; E87.2 Acidosis; E11.9 Type 2 diabetes mellitus without complications; D64.9 Anemia, unspecified; J44.0 Chronic obstructive pulmonary disease with (acute) lower respiratory infection; E87.6 Hypokalemia; B37.49 Other urogenital candidiasis; I48.92 Unspecified atrial flutter; B95.7 Other staphylococcus as the cause of diseases classified elsewhere; I49.5 Sick sinus syndrome; K29.70 Gastritis, unspecified, without bleeding; I10 Essential (primary) hypertension; F03.90 Unspecified dementia, unspecified severity, without behavioral disturbance, psychotic disturbance, mood disturbance, and anxiety; Z66 Do not resuscitate; K44.9 Diaphragmatic hernia without obstruction or gangrene; K22.70 Barrett's esophagus without dysplasia; Z82.49 Family history of ischemic heart disease and other diseases of the circulatory system; Z68.26 Body mass index [BMI] 26.0-26.9, adult
CPT/HCPCS: 36415; 36600; 71045; 80048; 80053; 80202; 81003; 82330; 82375; 82550; 82553; 82728; 82805; 82962; 83605; 83735; 83880; 84100; 84132; 84145; 84478; 84484; 85014; 85018; 85025; 85027; 85379; 85384; 86850; 86900; 86920; 87070; 87077; 93005; 93306; 94002; 94003; 96365; 99291; C9113; J0610; J0690; J1160; J1450; J1650; J1815; J1940; J2060; J2250; J2270; J2543; J2704; J2920; J3010; J3370; J3475; J3480; J3490; J7042; J7050; J7060; J7070; J7512; U0003-CS